=== PATIENT | female | born 1945 | race Caucasian/White ===

== ENCOUNTER → 2023-01-27 07:49 | Outpatient (BNVA) | payer OTHER, SELFPAY | PROVIDERS: PCP Internal Medicine; Visit Provider Internal Medicine Rheumatology | DX: M18.12 Unilateral primary osteoarthritis of first carpometacarpal joint, left hand (principal); G56.02 Carpal tunnel syndrome, left upper limb; M16.0 Bilateral primary osteoarthritis of hip; M17.0 Bilateral primary osteoarthritis of knee; M70.61 Trochanteric bursitis, right hip; M79.7 Fibromyalgia; M05.9 Rheumatoid arthritis with rheumatoid factor, unspecified; M35.00 Sjogren syndrome, unspecified | CPT/HCPCS: 20600; 20610 ==

== ENCOUNTER 2023-08-10 10:13 | Outpatient (REF) | payer OTHER, SELFPAY | END 2023-08-10 10:14 | disposition home or self-care (01) | LOC: HO.HOSX 10:13 | PROVIDERS: PCP Internal Medicine; Visit Provider Neurological Surgery | DX: M43.16 Spondylolisthesis, lumbar region (principal); M48.062 Spinal stenosis, lumbar region with neurogenic claudication | CPT/HCPCS: 72110 ==

== ENCOUNTER 2023-08-10 10:13 | Outpatient (AMB) | payer OTHER, SELFPAY ==
--- NOTE | 2023-08-10 10:42 | HO.SPINEOV ---
Intake Intake Visit Reasons: second opinion Intake Note: Mrs. Fan is here today c/o low back pain. MRI done @ [facility]/brought disc. Client Support Consultant Required: No Allergies acetaminophen [From Percocet] Adverse Reaction (Unknown, Verified 01/21/23 10:05) Palpitations amoxicillin Adverse Reaction (Unknown, Verified 01/21/23 10:05) Hives ampicillin Adverse Reaction (Unknown, Verified 01/21/23 10:05) Hives aspirin [From Percodan] Adverse Reaction (Unknown, Verified 01/21/23 10:05) Palpitations codeine Adverse Reaction (Unknown, Verified 01/21/23 10:05) Palpitations dexamethasone [From Decadron] Adverse Reaction (Unknown, Verified 01/21/23 10:05) Shortness of Breath, Fatigue erythromycin base Adverse Reaction (Unknown, Verified 01/21/23 10:05) Hives levofloxacin [From Levaquin] Adverse Reaction (Unknown, Verified 01/21/23 10:05) Hives naproxen Adverse Reaction (Unknown, Verified 01/21/23 10:05) Palpitations oxycodone [From Percocet] Adverse Reaction (Unknown, Verified 01/21/23 10:05) Palpitations Penicillins Adverse Reaction (Unknown, Verified 01/21/23 10:05) Hives pravastatin Adverse Reaction (Unknown, Verified 01/21/23 10:05) Muscle cramps sulfamethoxazole [From Bactrim] Adverse Reaction (Unknown, Verified 01/21/23 10:05) Hives triamcinolone [From Kenalog] Adverse Reaction (Unknown, Verified 01/21/23 10:05) Flushing trimethoprim [From Bactrim] Adverse Reaction (Unknown, Verified 01/21/23 10:05) Hives Assessment & Plan Assessment & Plan (1) Spondylolisthesis, lumbar region: Code(s): M43.16 - Spondylolisthesis, lumbar region (2) Lumbar stenosis with neurogenic claudication: Code(s): M48.062 - Spinal stenosis, lumbar region with neurogenic claudication Plan Dear colleague Thank you for referring Nakita Fan for 2nd opinion to the office today with a chief complaint of right footdrop. HPI: This 78-year-old female developed acute sciatica on April 29. The pain radiated from her buttock down to the outside of her lower leg. As far she recalls, she developed an immediate footdrop, which has slightly improved since then. The left side is unaffected. The pain has since then subsided after injections. She notices when she stretches her leg she gets tingling on the outside of her lower leg. She just started physical therapy. She saw a surgeon at [facility] recommended an L4-5 lumbar decompression and instrumented fusion and told her that she would be looking at a 1 year recovery. She is coming in for 2nd opinion PMH: Sjogren syndrome, hyper thyroidism, arthritis Medications: Methimazole, Tylenol, Advil Allergies: Penicillin, amoxicillin, ampicillin, codeine, naproxen, Percodan, Percocet, Levaquin, Bactrim, erythromycin, pr fast teen, Decadron, gabapentin Social history: . Nonsmoker Physical Exam: Pleasant female. She ambulates with a walker. Straight leg raise produces tingling in the right L5 dermatome. Motor exam shows a and 0/5 EHL and 3/5 dorsiflexors on the right side. Remainder of the muscle groups are intact. No sensory deficits. No pathological reflexes Radiological Studies: MRI done at [facility] on 05/18/2023 shows moderate L3-4 spinal stenosis and severe L4-5 central spinal stenosis with hyperintensity of the L4-5 facet joints and a grade 1 spondylolisthesis. Dynamic x-rays obtained today show no progression of the spondylolisthesis with flexion and extension. Impression/Plan: This patient is suffering from an L5 lumbar radiculopathy with a partial footdrop. The radicular pain is basically gone. There is no instability with flexion-extension x-rays and the symptoms are unilateral and therefore I think a simple unilateral lumbar laminotomy to decompress the L5 nerve root is a good option to see if the motor function of the L5 nerve root can be restored. I did not offer her lumbar fusion but if I would have offer her disc procedure then it would be minimally invasive approach with a 1 night hospital stay and recovery period of approximately 4-6 weeks. She wants to proceed with the right L5 laminotomy. She scheduled for 10/20/2023 . She will see Dr. Gil for preoperative clearance. Thank you for allowing me to participate in your patients care. Do not hesitate to call me with any questions or concerns total time spent was 50 minutes in counseling ,coordination of plan, personal review of imaging, surgical decision making and subsequent plan Jacinto Abad MD, PhD Sp[facility] Trained Neurosurgeon Director, [facility] Orders: Orders XR lumbar spine 4V min Today M43.16 - Spondylolisthesis, lumbar region, M48.062 - Spinal stenosis, lumbar region with neurogenic claudication Coding Level of Care Code New Pt Level 4 (79795) Diagnoses Spondylolisthesis, lumbar region M43.16 Lumbar stenosis with neurogenic claudication M48.062
== END 2023-08-10 12:56 | disposition home or self-care (01) ==
PROVIDERS: PCP Internal Medicine; Visit Provider Neurological Surgery
DX: M43.16 Spondylolisthesis, lumbar region (principal); M48.062 Spinal stenosis, lumbar region with neurogenic claudication
CPT/HCPCS: 99204

== ENCOUNTER → 2023-10-06 13:26 | Outpatient (BNV) | payer MEDICARE, SELFPAY | PROVIDERS: PCP Internal Medicine; Visit Provider Internal Medicine Cardiovascular Disease | DX: R00.0 Tachycardia, unspecified (principal) | CPT/HCPCS: 93010 ==

== ENCOUNTER 2023-10-20 09:07 | Day surgery (SDC) | payer MEDICARE, SELFPAY ==
--- NOTE | 2023-10-06 | ECG_ITS ---
Test Reason : PREOP Blood Pressure : / mmHG Vent. Rate : 102 BPM Atrial Rate : 102 BPM P-R Int : 148 ms QRS Dur : 084 ms QT Int : 340 ms P-R-T Axes : 074 035 039 degrees QTc Int : 443 ms Sinus tachycardia Possible Left atrial enlargement Borderline ECG No previous ECGs available Referred By: Rosie Haddad Electronically Signed By:MUSTAPHA ANTHONY MD
[2023-10-06 12:04] VITALS: BMI 22.1
[2023-10-06 12:08] VITALS: BP 156/73; PULSE 101; RESP 16; O2SAT 99
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
[2023-10-06 14:17] LABS: Hematocrit 44.8 % (37.0-47.0); Hemoglobin 14.5 g/dl (12.0-16.0); Mean Corpuscular HGB Conc 32.4 g/dl (31.0-35.0); Mean Corpuscular Hemoglobin 30.4 pg (27.0-33.0); Mean Corpuscular Volume 93.9 fL (80.0-98.0); Platelet Count 303 X10*3/uL (160-400); Red Blood Count 4.77 X10*6/uL (4.20-5.50); Red Cell Distribution Width 12.4 % (11.0-16.0); White Blood Count 8.7 X10*3/uL (4.8-10.8)
[2023-10-06 15:10] LABS: Anion Gap 12 (12-20); Blood Urea Nitrogen 14 mg/dL (9-16); Carbon Dioxide 27 mmol/L (22-29); Chloride 105 mmol/L (96-108); Creatinine Clr Calc Pharmacy 67.7; Estimated Glomerular Filt Rate > 60; Glucose Random 92 mg/dL (60-115); Potassium 4.2 mmol/L (3.3-5.1); Sodium 140 mmol/L (135-145)
[2023-10-06 15:22] LABS: TSH reflex Free T4 0.65 uIU/mL (0.32-4.0)
[2023-10-20] VITALS (15 sets, daily range): BP systolic 118–164; BP diastolic 54–85; PULSE 72–102; RESP 12–16; TEMP 36.1–36.4; O2SAT 97–100
--- NOTE | ~2023-10-20 | FL_ITS ---
EXAMINATION: XR FLUOROSCOPY WITH IMAGES CLINICAL INFORMATION: L5 laminectomy decompression, right. COMPARISON: Lumbar spine x-ray August 2023 TECHNIQUE: Fluoroscopy Supervised By: Dr. Jacinto Abad. Fluoroscopy Time: 0.0 minutes. Cumulative Dose: 1.62 mGy. DAP: 0.0281 Gycm2. Images: 1. FINDINGS: Single lateral image demonstrates surgical instrument and marker posterior to the L5 vertebrae FL/FL guidance in OR IMPRESSION: Fluoroscopy guidance for lumbar spine surgery.
--- NOTE | 2023-10-20 10:00 | MHC.SHP ---
Pre-Procedural Eval Section A Date of Service: 10/20/23 The patient is an INPATIENT: No Changes since office visit: Yes Cold of Flu in the past 2 weeks The History & Physical has been completed within 30 days and I have reviewed it.: No Section B Chief Complaint: Spondylolisthesis, lumbar region,spinal stenosis Allergies: Allergies Allergy/AdvReac Type Severity Reaction Status Date / Time gabapentin Allergy Severe Palpitations, Verified 10/06/23 12:29 GI upset amoxicillin AdvReac Severe Hives Verified 10/06/23 12:29 ampicillin AdvReac Severe Hives Verified 10/06/23 12:29 dexamethasone [From Decadron] AdvReac Severe Shortness Verified 10/06/23 12:29 of Breath, Fatigue erythromycin base AdvReac Severe Hives Verified 10/06/23 12:29 levofloxacin [From Levaquin] AdvReac Severe Hives Verified 10/06/23 12:29 Penicillins AdvReac Severe Hives Verified 10/06/23 12:29 pravastatin AdvReac Severe Muscle Verified 10/06/23 12:29 cramps sulfamethoxazole AdvReac Severe Hives Verified 10/06/23 12:29 [From Bactrim] trimethoprim [From Bactrim] AdvReac Severe Hives Verified 10/06/23 12:29 codeine AdvReac Intermediate Palpitation Verified 10/06/23 12:29 s naproxen AdvReac Intermediate Palpitation Verified 10/06/23 12:29 s oxycodone [From Percocet] AdvReac Intermediate Palpitations, Verified 10/06/23 12:29 GI upset triamcinolone [From Kenalog] AdvReac Mild Flushing Verified 10/06/23 12:29 Review of Systems Sugical H&P ROS: Negative: Constitution, Cardiovascular, Respiratory, Neurological, Psychiatric, Hem-Onc, Allergic/Immunologic, Gastrointestinal, Genitourinary, Musculoskeletal, Integumentary, Endocrine and Eyes/Ears/Nose/Throat Exam Surgical H&P Exam: Not Evaluated: HEENT, Not Evaluated: Heart, Not Evaluated: Lungs, Not Evaluated: Extremities, Not Evaluated: Abdomen, Not Evaluated: Skin and Not Evaluated: Neurological Plan Diagnosis/Plan: Unchanged I have reviewed the history and physical and performed a pertinent physical examination on my patient. No changes have occurred unless specified. right L5 foraminotomy Time Spent With Patient Time: Total time managing care of this patient today __5__ minutes.
[2023-10-20] MEDS: methocarbamoL 750 MG TABLET PO (10:35)
[2023-10-20] MEDS: Lactated Ringers 1,000 ML 100 ML IVCONT (10:50)
[2023-10-20] MEDS: vancomycin HCL 1,000 MG in 0.9 % Sodium Chloride 250 ML 270 MG IV (10:50)
--- NOTE | 2023-10-20 13:43 | W.PM.OPN ---
Operative Note Operative Note Date of Service: 10/20/23 Narrative: Preoperative Diagnosis: Spinal stenosis/lateral recess stenosis/neural foraminal stenosis Operation: Right L5 Laminotomy, Partial facetectomy and foraminotomy with use of microscope Consent Informed Consent was obtained for this operation. I have explained the nature, purpose and benefits of the operation. I have discussed the risks and benefit of the operation including possible complications or adverse events with patient/family. Alternative(s) were discussed with the patient with their relative benefits and risks as well as the consequences of not accepting the operation were included in obtaining consent. Surgeon: TRISTEN CHU MD, PHD Procedure Assisted By: FLOWER Aleman Description of Procedure This 78-year-old female developed right radiculopathy and drop foot. An MRI shows compression of the L5 nerve root from its origin and into the foramen. The patient was offered a decompression of the nerve root. The procedure complications were explained. The patient was consented. The patient was brought to the operating room and endotracheally intubated. The patient was turned in prone position on the Stanley frame. Prep and drape was done followed by timeout. Physician export sales assistant provided access. A mid lumbar incision was made followed by release of the paravertebral muscle on the right side to expose the L5 lamina and facet joint. An intraoperative x-ray was obtained to confirm the correct level. The microscope was brought in. I took over the procedure. The high-speed drill was used to do a L5 laminotomy. #2 Kerrison was used to further remove the lamina towards the L5 foramen. The flavum ligament was opened and the origin of the L5 nerve root was not identified. Significant hypertrophied flavum ligament was resected from the lateral recess to decompress the L5 nerve root. The facet joint was partially drilled down after which with a #2 Kerrison a foraminotomy was done. Finally a foraminotomy Kerrison was used to complete the foraminotomy. Severe neuroforaminal stenosis was present and released. A long nerve hook could be easily passed over the nerve root, a sign of relief of the neuroforaminal stenosis and decompression of the nerve root . The microscope was removed. Hemostasis was done. Incision was closed in 2 layers. Steri-Strips were used to approximate incision. An OpSite with Tegaderm was used to cover the incision. All sponge needle counts were correct. Patient was extubated and transported in stable is to recovery room. Anesthesia: General Estimated Blood Loss (ml): 25 mL Duration of Surgery: Under 60 Minutes Postoperative Plan: Discharge to home
--- NOTE | 2023-10-20 13:46 | P.DS_ITS ---
DS: Providers Provider Date of Service: 10/20/23 Primary care physician: Reina Gil MD DS: Summary Time Attestation Discharge coordination time: Less than 30 minutes Quality: Safe Use of Opioids Does Pt have an Active Cancer Diagnosis on the Problem List?: No Quality: Stroke Does the patient have a stroke diagnosis?: No Physical Exam Vital Signs: Vital Signs: Last Vital Signs Temp 97.6 F 10/20/23 10:24 Pulse 102 H 10/20/23 10:24 Resp 16 10/20/23 10:24 BP 139/65 10/20/23 10:24 Pulse Ox 100 10/20/23 10:24 O2 Del Method Room Air 10/20/23 10:24 BMI result Body Mass Index 22.1 Discharge Plan Discharge Patient Disposition: Home, Self-Care Referrals: Reina Gil MD [Primary Care Provider] - 1 Week Discharge Medications: New tramadol 100 mg tablet 100 mg PO Q6-8H PRN (Reason: severe pain) Qty: 30 0RF Continued cholecalciferol (vitamin D3) [Vitamin D3] 25 mcg (1,000 unit) Capsule 25 mcg PO DAILY magnesium 200 mg Tablet 400 mg PO DAILY zinc 50 mg Capsule 50 mg PO DAILY biotin PO DAILY iron hyalur ac-chond sul-colg II-AA 40-80-400 mg Capsule 200 cap PO DAILY Biotene Moisturizing Mouth [place],Non-Aerosol 1 appl MUCOUS MEMBRANE Q2H PRN (Reason: Dry Mouth) Rx Instructions: while awake Systane Complete 0.6 % Drops 1 drp OPHTHALMIC (EYE) BID PRN (Reason: Dry Eyes) Systane Gel ophthalmic (eye) BID PRN (Reason: Dry Eyes) lorazepam 0.5 mg tablet 0.25 mg PO BEDTIME PRN (Reason: insomnia) methimazole 5 mg tablet 2.5 mg PO BEDTIME acetaminophen [Tylenol Arthritis Pain] 650 mg tablet extended release 650 mg PO Q8H PRN (Reason: Pain) (DME) finger splint Misc See Rx Instructions .Route Qty: 1 0RF Rx Instructions: As directed Held omega 5-hyz-aji-fish oil [Fish Oil] 1,200 (144-216) mg Capsule PO Hold Instructions: Resume on 11/20/23. Discharge Orders: Discharge Order (Routine); Ordered 10/20/23 Ordered By: Rafa Pillai Diet: Advance to usual diet Activity on Discharge: As tolerated Activity Restrictions/Additional Instructions: After your spinal surgery we ask you to observe the following restrictions/guidelines: Activity: It is normal to feel some discomfort as you increase your activity, but that will improve with time. We ask you avoid heavy lifting or acitivities that cause pain. As a general rule, 8lbs is a safe limit for lifting right after surgery. Walk as much as you feel comfortable but not to exhaustion. You will feel extra tired the first few days after surgery. Stay well hydrated. It is OK to walk up and down stairs You may return to driving when you are off narcotics (such as vicodin, oxycodone, dilaudid, etc), and you are back to normal functional capacity. If you have any concerns please check with office before driving. Return to work is specific to each patient and each surgery, so please speak with your doctor/PA at first follow up. Please bring paperwork such as FMLA at that time if you need it filled out. Medications: We will give you a short supply of narcotics after surgery (usually one weeks worth). If you need more please call the office but do not use more than prescribed. You will need to give our office 48 hours notice if you need narcotics refilled and we do not fill narcotics on weekends or evenings. If you are on a narcotic, it is a good idea to take a stool softener such as colace or senna to avoid constipation If you take blood thinner such as aspirin, Plavix, Coumadin, Effient, Eliquis etc for conditions such as Afib, DVT, Pulmonary embolus, coronary disease, stents etc please speak with your surgeon about specific details as to when you can resume these medications. You can resume NSAIDs on post op day 1 (eg: Motrin, Naproxen, etc). Follow up: Please call the office, , after surgery to arrange a 3 week follow up for wound check. Wound Care: You may remove your dressing on the first day after surgery. You may leave open to air. Please do not remove the steri strips underneath. they will fall off on their own in one week. IT IS NORMAL FOR THE WOUND TO OOZE OR BE BLOODY FOR A FEW DAYS AFTER SURGERY. IF THIS HAPPENS JUST PLACE NEW DRESSING OVER IT TO AVOID STAINING CLOTHES. You may shower on post op day # 1 We ask that you do not let the water soak the wound. If it does get wet, just towel dry lightly. Please do not scrub your incision or place any type of chemical/ointment on the wound. No tub baths, pools or jacuzzis for one month. If you have any leaking or redness from your wound, or fevers, please call the office.
[2023-10-20] MEDS: ondansetron HCL 4 MG/2 ML VIAL IVPUSH (14:19)
== END 2023-10-20 17:35 | disposition home or self-care (01) ==
PROVIDERS: Nurse Practitioner; PCP Internal Medicine; Visit Provider Neurological Surgery
PROC: (CPT 63047; principal; 2023-10-20 13:30)
DX: M48.062 Spinal stenosis, lumbar region with neurogenic claudication (principal); M43.16 Spondylolisthesis, lumbar region; M21.371 Foot drop, right foot; M54.50 Low back pain, unspecified; Z88.0 Allergy status to penicillin; Z88.2 Allergy status to sulfonamides; Z88.1 Allergy status to other antibiotic agents; Z88.5 Allergy status to narcotic agent; Z88.8 Allergy status to other drugs, medicaments and biological substances; M35.00 Sjogren syndrome, unspecified; E05.90 Thyrotoxicosis, unspecified without thyrotoxic crisis or storm; M19.91 Primary osteoarthritis, unspecified site; Z99.89 Dependence on other enabling machines and devices
CPT/HCPCS: 63047; 36415; 80048; 84443; 85027; 93005; J0131; J1885; J2371; J2405; J2704; J3010; J3370

== ENCOUNTER → 2023-10-20 09:07 | Outpatient (BNV) | payer MEDICARE, SELFPAY | PROVIDERS: PCP Internal Medicine; Visit Provider Neurological Surgery | DX: M48.062 Spinal stenosis, lumbar region with neurogenic claudication (principal); M43.16 Spondylolisthesis, lumbar region | CPT/HCPCS: 63047; 99499 ==

== ENCOUNTER 2023-11-10 11:26 | Outpatient (AMB) | payer OTHER, SELFPAY ==
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
== END 2023-11-10 11:54 | disposition home or self-care (01) ==
PROVIDERS: PCP Internal Medicine; Visit Provider Physician Assistant
DX: M48.062 Spinal stenosis, lumbar region with neurogenic claudication (principal)
CPT/HCPCS: 99024

== ENCOUNTER → 2023-11-10 11:26 | Outpatient (BNVA) | payer OTHER, SELFPAY | PROVIDERS: PCP Internal Medicine; Visit Provider Physician Assistant ==

== ENCOUNTER 2023-12-22 16:04 | Outpatient (AMB) | payer OTHER, SELFPAY ==
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
== END 2023-12-22 16:05 | disposition home or self-care (01) ==
LOC: HO.HNS 16:04
PROVIDERS: PCP Internal Medicine; Visit Provider Physician Assistant
DX: M43.16 Spondylolisthesis, lumbar region (principal)
CPT/HCPCS: 99024

== ENCOUNTER → 2023-12-22 16:04 | Outpatient (BNVA) | payer OTHER, SELFPAY | PROVIDERS: PCP Internal Medicine; Visit Provider Physician Assistant | DX: M43.16 Spondylolisthesis, lumbar region (principal) ==

== ENCOUNTER 2024-01-04 13:31 | Outpatient (AMB) | payer OTHER, SELFPAY ==
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
[2024-01-04 13:49] VITALS: BP 128/64; PULSE 109; TEMP 36.5; O2SAT 98; BMI 22.8
== END 2024-01-04 14:42 | disposition home or self-care (01) ==
PROVIDERS: PCP Internal Medicine; Visit Provider Student in an Organized Health Care Education/Training Program
DX: M35.01 Sjogren syndrome with keratoconjunctivitis (principal); M70.61 Trochanteric bursitis, right hip
CPT/HCPCS: 20610; 99213

== ENCOUNTER → 2024-01-04 13:31 | Outpatient (BNVA) | payer OTHER, SELFPAY | PROVIDERS: PCP Internal Medicine; Visit Provider Student in an Organized Health Care Education/Training Program | DX: M70.61 Trochanteric bursitis, right hip (principal); M35.01 Sjogren syndrome with keratoconjunctivitis | CPT/HCPCS: 20610; J3301 ==

== ENCOUNTER 2024-07-16 13:30 | Outpatient (AMB) | payer OTHER, SELFPAY ==
[2024-07-16 13:33] VITALS: BP 124/78; PULSE 89; O2SAT 98; BMI 23.5
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
== END 2024-07-16 15:22 | disposition home or self-care (01) ==
PROVIDERS: PCP Internal Medicine; Visit Provider Student in an Organized Health Care Education/Training Program
DX: M35.01 Sjogren syndrome with keratoconjunctivitis (principal); M70.61 Trochanteric bursitis, right hip; M17.0 Bilateral primary osteoarthritis of knee; E04.9 Nontoxic goiter, unspecified
CPT/HCPCS: 20610; 99214

== ENCOUNTER → 2024-07-16 13:30 | Outpatient (BNVA) | payer OTHER, SELFPAY | PROVIDERS: PCP Internal Medicine; Visit Provider Student in an Organized Health Care Education/Training Program | DX: M70.61 Trochanteric bursitis, right hip (principal); M35.01 Sjogren syndrome with keratoconjunctivitis; M17.0 Bilateral primary osteoarthritis of knee; E04.9 Nontoxic goiter, unspecified | CPT/HCPCS: 20610; J2003; J3301 ==

== ENCOUNTER → 2024-09-05 12:46 | Outpatient (REF) | payer OTHER, SELFPAY ==
--- NOTE | 2024-09-05 12:49 | CA_ITS ---
Transthoracic Echocardiogram Patient (Last, First, Middle): Nakita Fan L Gender: Female Date of : 1945 Age: 79 Procedure Date: 09/05/2024 Procedure Type: Transthoracic Echocardiogram Location: OP Height: 162.56 cm Weight: 62.14 kg BSA: 1.67 m2 Heart Rate: 91 bpm BP: 120 / 72 mmHg Lead Javascript Engineer: SB Referring MD: Janet Amanda MD Symptoms: M34.9 - Systemic sclerosis, unspecified Study Quality: Adequate ECG Rhythm: Sinus Conclusions: - The left ventricular systolic function is normal. The calculated ejection fraction is 57% by biplane method. - There is mild calcification of the aortic valve. - There is mild mitral annular calcification. - No obvious valvular pathology seen on this study. Findings Left Ventricle Normal left ventricular cavity size. The left ventricular systolic function is normal. The calculated ejection fraction is 57% by biplane method. There is no evidence of regional wall motion abnormalities. Evidence suggests grade I (mild) diastolic dysfunction. There is mild septal asymmetric hypertrophy. Right Ventricle Normal right ventricular cavity size and systolic function. Atria Both atria are normal in size. Aortic Valve There is mild calcification of the aortic valve. There is no aortic valve stenosis. There is no aortic valve regurgitation. Mitral Valve There is mild anterior mitral leaflet thickening. There is mild mitral annular calcification. There is no mitral valve regurgitation. There is no mitral valve stenosis. Pulmonic Valve The pulmonic valve is likely normal. Tricuspid Valve Normal tricuspid valve structure. There is trace tricuspid valve regurgitation. There is no evidence of pulmonary hypertension. Great Vessels The asc aorta is normal in size. Venous The inferior vena cava is normal in size and collapses greater than 50% with inspiration. Pericardium/Pleural There is a trivial pericardial effusion. Prior Study Comparison No prior study available for comparison. Recommendations, Care & Conclusions No obvious valvular pathology seen on this study. Measurements 2D Linear Measurements IVSd: 1.03 0.6-0.9/0.6-1.0 cm LVIDd: 3.85 3.9-5.3/4.2-5.9 cm LVIDd Index: 2.31 2.4-3.2/2.2-3.1 cm/m2 LVIDs: 2.46 2.0-3.6 cm LVPWd: 0.95 0.7-1.1 cm LA Diam: 3.20 2.7-3.8/3.0-4.0 cm LAIDs Index: 1.92 1.5-2.3 cm/m2 LV Mass: 147.16 67-162/88-224 g LV Mass Index: 88.12 43-95/49-115 g/m2 LVOT Diam: 2.10 3.0+(-)1.3 cm 2D Systolic Function EF 4C: 57.30 >55% EF 2C: 52.50 >55% EF BiP: 56.60 >55% Mitral Valve MV VTI: 0.17 MV Pk Stanislav: 0.97 MV Mn Stanislav: 0.53 MV Pk Grad: 4.00 MV Mn Grad: 1.00 MV Pk E: 0.64 MV PK A: 0.79 MV Decel Time: 189.00 E/A: 0.80 E'Lateral: 4.24 E'Medial: 3.70 E/E' Med: 17.20 E/E' Lat: 15.00 PHT: 55.00 MVA PHT: 4.00 MVA Continuity: 3.98 Decel Osborne: 3.38 Aortic Valve AoV Pk Stanislav: 1.21 AoV Mn Stanislav: 0.70 AoV VTI: 0.21 AoV Pk Grad: 6.00 Aov Mn Grad: 2.00 RK Cont.VTI: 3.21 LVOT LVOT Pk Stanislav: 0.98 LVOT Mn Stanislav: 0.64 LVOT VTI: 0.19 LVOT Pk Grad: 4.00 LVOT Mn Grad: 2.00 LVOT Diam: 2.10 LVOT Area: 3.46 Diastolic Function MV Pk E: 0.64 MV Pk A: 0.79 E/A: 0.80 E'Medial: 3.70 E/E' Med: 17.20 E' Laterial: 4.24 E/E' Lat: 15.00 Right Ventricle TAPSE (mm): 18.10 TVS' Stanislav: 9.90 Tricuspid Valve RA Press: 3.00 Great Vessels Aorta Sinus of Valsalva: 2.80 2.0-3.5 cm Ao Asc: 3.00 2.1-3.4 cm Pulmonary Valve PV Pk Stanislav: 0.82 Peak PV Grad: 3.00 Updated in Other Vendor System with Status of Final Keanu Spivey MD electronically signed on 09/08/2024 11:28:05 AM with status of Final
== END ==
LOC: HO.CARD 12:46
PROVIDERS: PCP Internal Medicine; Visit Provider Student in an Organized Health Care Education/Training Program
DX: M34.9 Systemic sclerosis, unspecified (principal)
CPT/HCPCS: 93306

== ENCOUNTER → 2024-09-05 12:49 | Outpatient (BNV) | payer OTHER, SELFPAY | PROVIDERS: PCP Internal Medicine; Visit Provider Internal Medicine | DX: I42.2 Other hypertrophic cardiomyopathy (principal); I35.8 Other nonrheumatic aortic valve disorders; I34.81 Nonrheumatic mitral (valve) annulus calcification; M34.1 CR(E)ST syndrome; M35.09 Sjogren syndrome with other organ involvement | CPT/HCPCS: 93306 ==

== ENCOUNTER 2024-10-16 11:50 | Outpatient (REF) | payer OTHER, SELFPAY ==
--- OUTSIDE RECORDS SUMMARY | 2024-10-17 21:02 | XMS_ITS | Patient Health Record ---
Author [facility] Address [address] [place] [address] Care Team Providers Care Press Operator Assistant Name Role Phone Reina Gil Primary Care Provider Kori Franco [phone] Reason For Referral No Information Encounters Encounter Location Date Provider Diagnosis [facility] [place] [address] 08/13/2024 Kori Lozano Plan Of Treatment No Information Insurance Providers Payer Name Payer Address Payer Phone Subscriber Number Group Number Insured Name Patient Relationship to Insured Coverage Start Date Coverage End Date [employer] Medicare Advantage [address] [place] [id number] Nakita Fan Self - patient is the insured
--- OUTSIDE RECORDS SUMMARY | 2024-10-17 21:02 | XMS_ITS ---
Author Organization [facility] Address [address] [place] [address] Care Team Providers Care Comb Setter Name Role Phone JefferyReina garces Primary Care Provider Unavailjayde jackman Black, Kori Unavailable [phone] REASON FOR VISIT cx QUARTZ MOUNTER appt 08/30/24 Encounters Encounter Location Date Provider Diagnosis [address] [address] 08/13/2024 Kori Black Plan Of Treatment No Information Progress Notes * Nakita CLAYTONDOB:[birth year] (79 yo F)Acc No.[id number]:08/13/2024 Patient:?Nakita Clayton :1945???Age:79 Y???Sex:Female Address:[address] [place] [address], [address] * true * Date:? Generated for Darwin mesa/Maude/eTransmitting on:?10/17/2024 09:01 PM EST
--- OUTSIDE RECORDS SUMMARY | 2024-10-17 21:02 | XMS_ITS ---
Author Organization [facility] Address [address] [place] [address] Care Team Providers Care Mechanical Applications Engineer Name Role Phone Reina Gil Primary Care Provider Kori Franco [phone] Encounters Encounter Location Date Provider Diagnosis [address] [address] 08/29/2024 Kori Lozano Plan Of Treatment No Information Progress Notes * Nakita CLAYTONDOB:[birth year] (79 yo F)Acc No.[id number]:08/29/2024 Progress Notes Patient:?FORREST Nakita Provider:?Kori Lozano DPM :1945???Age:79 Y???Sex:Female D ate:08/29/2024 Address:[address] [place], [place] [phone] Pcp:Reina Gil Subjective: * Chief Complaints: * ??? * Medical History:? Objective: * Vitals:? Assessment: Plan: * Treatment: * Images: * The named appointment provid er may or may not be the originator of this progress note, and it is not deemed complete until electronically signed by the appointment provider. Sign off status: Pending * Provider:?Kori Lozano DPM Date:?2023 Generated for Darwin mesa/Maude/Kishoritting on:?10/17/2024 09:01 PM EST
== END 2024-10-16 11:51 | disposition home or self-care (01) ==
LOC: HO.HOSX 11:50
PROVIDERS: Visit Provider Physician Assistant
DX: Z13.89 Encounter for screening for other disorder (principal)

== ENCOUNTER 2024-10-19 14:50 | Outpatient (AMB) | payer OTHER, SELFPAY ==
--- OUTSIDE RECORDS SUMMARY | 2024-10-19 14:52 | XMS_ITS | Patient Health Record ---
Author [facility] Address [address] [place] [address] Care Team Providers Care Track Mechanic Name Role Phone Reina Gil Primary Care Provider Kori Franco [phone] Reason For Referral No Information Encounters Encounter Location Date Provider Diagnosis [facility] [place] [address] 08/13/2024 Kori Lozano Plan Of Treatment No Information Insurance Providers Payer Name Payer Address Payer Phone Subscriber Number Group Number Insured Name Patient Relationship to Insured Coverage Start Date Coverage End Date [employer] [place] Medicare Advantage [address] [place] [address] [phone] [id number] Nakita Fan Self - patient is the insured
--- OUTSIDE RECORDS SUMMARY | 2024-10-19 14:52 | XMS_ITS ---
Author Organization [facility] Address [address] [place] [address] Care Team Providers Care Crew Leader/Control Room Operator Name Role Phone JefferyReina garces Primary Care Provider Unavailjayde jackman Black, Kori Unavailable [phone] REASON FOR VISIT cx JUNIOR PROJECT MANAGER appt 08/30/24 Encounters Encounter Location Date Provider Diagnosis [address] [address] 08/13/2024 Kori Black Plan Of Treatment No Information Progress Notes * Nakita CLAYTONDOB:[birth year] (79 yo F)Acc No.[id number]:08/13/2024 Patient:?Nakita Clayton :1945???Age:79 Y???Sex:Female Address:[address] [place] [address], [address] * true * Date:? Generated for Darwin mesa/Maude/eTransmitting on:?10/19/2024 02:52 PM EST
--- OUTSIDE RECORDS SUMMARY | 2024-10-19 14:52 | XMS_ITS ---
Author Organization [facility] Address [address] [place] [address] Care Team Providers Care Chimney Builder Brick Name Role Phone Reina Gil Primary Care Provider Kori Franco [phone] Encounters Encounter Location Date Provider Diagnosis [address] [address] 08/29/2024 Kori Lozano Plan Of Treatment No Information Progress Notes * Nakita CLAYTONDOB:[birth year] (79 yo F)Acc No.[id number]:08/29/2024 Progress Notes Patient:?FORREST Nakita Provider:?Kori Lozano DPM :1945???Age:79 Y???Sex:Female D ate:08/29/2024 Address:[address] [place], [place] [phone] Pcp:Reina Gil Subjective: * Chief Complaints: * ??? * Medical History:? Objective: * Vitals:? Assessment: Plan: * Treatment: * Images: * The named appointment provid er may or may not be the originator of this progress note, and it is not deemed complete until electronically signed by the appointment provider. Sign off status: Pending * Provider:Raghu Lozano DPM Date:?2023 Generated for Darwin mesa/Maude/Kishoritting on:?10/19/2024 02:52 PM EST
--- NOTE | 2024-10-19 15:28 | HO.SPINEOV ---
Intake Visit Reasons: Follow up Intake Note: Ms. Fna is here today for a F/u. Weatherization Technician Required: No Allergies gabapentin Allergy (Severe, Verified 10/19/24 15:29) Palpitations, GI upset amoxicillin Adverse Reaction (Severe, Verified 10/19/24 15:29) Hives ampicillin Adverse Reaction (Severe, Verified 10/19/24 15:29) Hives dexamethasone [From Decadron] Adverse Reaction (Severe, Verified 10/19/24 15:29) Shortness of Breath, Fatigue erythromycin base Adverse Reaction (Severe, Verified 10/19/24 15:29) Hives levofloxacin [From Levaquin] Adverse Reaction (Severe, Verified 10/19/24 15:29) Hives Penicillins Adverse Reaction (Severe, Verified 10/19/24 15:29) Hives pravastatin Adverse Reaction (Severe, Verified 10/19/24 15:29) Muscle cramps sulfamethoxazole [From Bactrim] Adverse Reaction (Severe, Verified 10/19/24 15:29) Hives trimethoprim [From Bactrim] Adverse Reaction (Severe, Verified 10/19/24 15:29) Hives codeine Adverse Reaction (Intermediate, Verified 10/19/24 15:29) Palpitations naproxen Adverse Reaction (Intermediate, Verified 10/19/24 15:29) Palpitations oxycodone [From Percocet] Adverse Reaction (Intermediate, Verified 10/19/24 15:29) Palpitations, GI upset triamcinolone [From Kenalog] Adverse Reaction (Mild, Verified 10/19/24 15:29) [place] Assessment & Plan Assessment & Plan (1) Spondylolisthesis, lumbar region: Code(s): M43.16 - Spondylolisthesis, lumbar region Category: Medical Plan Mrs Fan came back to f/u on her mri done at [facility]. She had right L5 decompression/foraminotomy previously by Dr Abad about a year ago. Her right leg pain went away, and her footdrop improved a little bit. Unfortunately, shes been dealing wiht a new post operative pain going down back of both legs left greater than right, that started a few months ago. It primarily is only there when she is transitioning from sitting to standing or if she has to bend forward to get something. She will describe it as a jolt like sensation which radiates down the back of both legs, left greater than right. It goes all the way down to her calves. Generally when she is walking she feels okay but it is these transition moments where she will have the shooting pain. There is a component of back pain but primarily the legs are what are bothering her the most. She has also noticed that her right footdrop as returned to what it was before surgery. On my exam today it is about a 3/5. The rest of her exam is unremarkable. She is slow to stand up. Her MRI done at [facility] shows that she continues to have significant disc bulge at L3-4 with moderate to severe stenosis and has ongoing stenosis at L4-5 in the central canal. There is also a spondylolisthesis at L4-5. Dr. Abad discussed the fact with her at that even before surgery, lumbar fusion was in consideration because of the spondylolisthesis at L4-5. She chose the right L5 laminotomy and foraminotomy because it was less invasive in the recovery was quicker. Unfortunately we think that now she is developing in instability around the facet joint at L4-5. This is reinforced with her standing x-rays showing a significant angulation at the L4-5 disc space causing a scoliotic deformity. He has offered her the option of an L3-4, L4-5 oblique lumbar interbody fusion to treat the symptoms. Right now, he wants her to wait a little bit longer and do some physical therapy just to see if this somehow may go away on its own. If it does not, we will discuss the option with surgery with her again. Total amount of time spent in this visit was 20 minutes in discussion of symptoms, lumbar MRI imaging results and subsequent plan of care Griffin Abad MD,PhD [facility] Orders: Orders PT Evaluation and Treatment Today M43.16 - Spondylolisthesis, lumbar region Coding Level of Care Code Est Pt Level 3 (09498) Diagnoses Spondylolisthesis, lumbar region M43.16
== END 2024-10-19 16:30 | disposition home or self-care (01) ==
PROVIDERS: PCP Internal Medicine; Visit Provider Physician Assistant
DX: M43.16 Spondylolisthesis, lumbar region (principal)
CPT/HCPCS: 99213

== ENCOUNTER → 2024-10-19 14:50 | Outpatient (BNVA) | payer OTHER, SELFPAY | PROVIDERS: PCP Internal Medicine; Visit Provider Physician Assistant ==

== ENCOUNTER 2024-10-19 14:53 | Outpatient (REF) | payer OTHER, SELFPAY ==
--- NOTE | ~2024-10-19 | XR_ITS ---
EXAMINATION: XR LUMBAR SPINE CLINICAL INFORMATION: Spondylolisthesis, lumbar region M43.16. COMPARISON: XR Lumbar spine 08/10/2023 TECHNIQUE: 4 views of lumbar spine were obtained. FINDINGS: Diffuse osteopenia. Multilevel degenerative changes of the lumbar spine most pronounced in the lower lumbar spine. 9 mm of anterolisthesis of L5 on S1. This is unchanged in flexion or extension. XR/XR lumbar spine 4V min IMPRESSION: Multilevel degenerative changes of the lumbar spine most pronounced in the lower lumbar spine. Electronically signed by: Richard Gonzalez MD 10/30/2024 01:28 PM AYE
== END 2024-10-19 14:54 | disposition home or self-care (01) ==
LOC: HO.HOSX 14:53
PROVIDERS: Visit Provider Physician Assistant
DX: M43.16 Spondylolisthesis, lumbar region (principal)
CPT/HCPCS: 72110

== ENCOUNTER 2025-06-13 12:14 | Outpatient (AMB) | payer OTHER, SELFPAY ==
--- OUTSIDE RECORDS SUMMARY | 2024-08-29 06:30 | XMS_ITS ---
Author Organization [facility] Address [address] [place] [address] Care Team Providers Care Sales Training Representative Name Role Phone Reina Gil Primary Care Provider Kori Franco [phone] Encounters Encounter Location Date Provider Diagnosis [address] [address] 08/29/2024 Kori Lozano Plan Of Treatment No Information Progress Notes * Corby CLAYTONyrnDOB:[birth year] (80 yo F)Acc No.[id number]:08/29/2024 Progress Notes Patient: Nakita FERMIN Provider: Gerson Lozano DPM :1945 A ge:79 Y S ex:Female Date:08/29/2024 Address:[address] [place], [place] [id number] Pcp:Reina Gil Subjective: * Chief Complaints: * * Medical History: Objective: * Vitals: Assessment: Plan: * Treatment: * Images: * The named appointment provid er may or may not be the originator of this progress note, and it is not deemed complete until electronically signed by the appointment provider. Sign off status: Pending * Provider: Gerson Lozano DPM Date: 1 Generated for Darwin mesa/Maude/eTveronicaitting on: 0 06/13/2025 12:34 PM EDT
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
[2025-06-13 12:27] VITALS: BP 120/70; PULSE 92; O2SAT 99; BMI 22.2
--- OUTSIDE RECORDS SUMMARY | 2025-06-13 12:34 | XMS_ITS | Clinical Summary ---
Author Organization [facility] Address [address] [place] [address] Phone Care Team Providers Care Youth Worker Name Role Phone Reina Gil MD Primary Care Provider Active Problems No known active problems Surgical History Surgery Date Site/Laterality Comments SECTION PROCEDURE: [place] DELIVERY ONLY; COMMENT: x 2 Family History Medical History Relation Name Comments Breast cancer Aunt Relation Name Status Comments Aunt Social History Tobacco Use Types Packs/Day Years Used Date Smoking Tobacco: Former Smokeless Tobacco: Never Alcohol Use Standard Drinks/Week Comments Yes 0 (1 standard drink = 0.6 oz pur e alcohol) Comments Unknown Sex and Gender Information Value Date Recorded Sex Assigned at Not on file Legal Sex Female 7:50 AM EST Gender Identity Not on file Sexual Orientation Not on file Obstetrics History Last Filed Vital Signs Vital Sign Reading Time Taken Comments Blood Pressure - - Pulse - - Temperature - - Respiratory Rate - - Oxygen Saturation - - Inhaled Oxygen Concentration - - Weight 59.9 kg (132 lb) 10/09/2024 12:21 PM EST Height - - Body Mass Index - - Plan of Treatment Health Maintenance Due Date Last Done Comments Hepatitis A Vaccines (1 of 2 - Risk 2-dose series) 1966 Pneumococcal Vaccine: 50+ Years (1 of 1 - PCV) 1997 Zoster Vaccines (1 of 2) 1997 Hepatitis B Vaccines (1 of 3 - Risk 3-dose series) 2007 Falls Risk Assessment 10/10/2022 Hepatitis C Screening 10/10/2022 Medicare Annual Wellness Visit 10/10/2022 Social Influencers of Health Screening 10/10/2022 DTaP,Tdap,and Td Vaccines (2 - Td or Tdap) 05/23/2024 05/23/2014 Depression Screening 11/07/2024 COVID-19 Vaccine ( season) 2025 08/17/2024, 08/23/2023, 03/01/2023, Additional history exists Influenza Vaccine (#1) 2025 , 08/02/2023, 08/20/2022, Additional history exists Osteoporosis Screening (Bone Density Screening) 03/10/2033 03/10/2023, 09/02/2020 RSV Immunization Adult Patients Completed 08/23/2023 HIB Vaccines Aged Out No longer eligi ble based on patient's age to complete this topic HPV Vaccines Aged Out No longer eligi ble based on patient's age to complete this topic IPV Vaccines Aged Out No longer eligi ble based on patient's age to complete this topic MMR Vaccines Aged Out No longer eligi ble based on patient's age to complete this topic Meningococcal ACWY Vaccine Aged Out N o longer eligible based on patient's age to complete this topic Meningococcal B Vaccine Aged Out No l onger eligible based on patient's age to complete this topic RSV Immunization Patients Under 20 months Aged Out No longer eligible based on patient's age to complete this topic Varicella Vaccines Aged Out No longer eligible based on patient's age to complete this topic Procedures Procedure Name Priority Date/Time Associated Diagnosis Comments [facility] DEXA AXIAL SKELETON Routine 03/10/2023 4:56 PM EDT Age-related osteoporosis without current pathological fracture from Last 3 Months or Most Recently Relevant to Health Maintenance Results * [facility] DEXA AXIAL SKELETON (03/10/2023 4:56 PM EDT) Anatomical Region Laterality Modality Mammography 03/10/2023 11:2 1 AM EDT Narrative 03/10/2023 4:56 PM EDT [facility] Diagnostic Imaging Department [address] [place] [address] Patient: JAE CLAYTON /Age/Sex: 1945 - 78 - F Unit#: [id number] Location/Status: SPDIMAM/REG CLI Mnemonic/Ordering Site: MAMDEXAAX/SPMAM Ordering Physician: GRACIELA NUNEZ MD [facility] Dexa Axial Skeleton - 03/10/23 - 1145 History: Low estrogen state due to menopause. Parent hip fracture. Adult fracture (forearm). Comparison: 09/01/20 Findings: Bone densitometry is performed utilizing dual energy x-ray absorptiometry (DXA) in the [employer] unit. The lumbar spine and proximal femora are evaluated in the AP projection. The FRAX questionaire was completed. The results indicate osteoporosis, with a left femoral neck T-score of -2.9. The Z score is -0.8, indicating bone mineral density within the range of normal for age. There has been no statistically significant change. The detailed DEXA report will be mailed to the referring physician's office. [employer] FRAX: 10-year Probability of Fracture: Major Osteoporotic 39.8 percent Hip 26.4 percent. IMPRESSION: Osteoporosis. [id number] Dictating Physician: SHIRA MADRIGAL MD Electronically Signed by: SHIRA MADRIGLA MD Dic Date/Time: 03/10/231654 Sign date/Time: 03/10/231655 Procedure Note Shira Madrigal MD - 12/09/2023 [facility] Diagnostic Imaging Department [address] [place], [place] [id number] Patient: JAE CLAYTON /Age/Sex: 1945 78 - F Unit#: [id number] Location/Status: SPDIMAM/REG CLI Mnemonic/Ordering Site: MAMDEXAAX/SPMAM Ordering Physician: GRACIELA NUNEZ MD [facility] Dexa Axial Skeleton - 03/10/23 - 1145 History: Low estrogen state due to menopause. Parent hip fracture. Adult fracture (forearm). Comparison: 09/01/20 Findings: Bone densitometry is performed utilizing dual energy x-ray absorptiometry(DXA) in the [employer] unit. The lumbar spine and proximal femora areevaluated in the AP projection. The FRAX questionaire was completed. The results indicate osteoporosis, with a left femoral neck T-score of-2.9. The Z score is -0.8, indicating bone mineral density within the range ofnormal for age. There has been no statistically significant change. The detailedDEXA report will be mailed to the referring physician's office. [employer] FRAX: 10-year Probability of Fracture: Major Osteoporotic 39.8 percent Hip 26.4 percent. IMPRESSION: Osteoporosis. [id number] Dictating Physician: SHIRA MADRIGAL MD Electronically Signed by: SHIRA MADRIGAL MD Dic Date/Time: 03/10/231654 Sign date/Time: 03/10/231655 us Graciela Pineda MD IMG BI PROCEDURES Final Resu lt from Last 3 Months or Most Recently Relevant to Health Maintenance Insurance [employer] Care Teams Youth Worker Relationship Specialty Start Date End Date Reina Gil MD [address] [place] [address] [phone] PCP - General Internal Medicine 10/23/24
== END 2025-06-13 13:32 | disposition home or self-care (01) ==
LOC: HO.RHES 12:15
PROVIDERS: PCP Internal Medicine; Visit Provider Internal Medicine Rheumatology
DX: M35.05 Sjogren syndrome with inflammatory arthritis (principal); M70.61 Trochanteric bursitis, right hip; M17.0 Bilateral primary osteoarthritis of knee; I73.00 Raynaud's syndrome without gangrene
CPT/HCPCS: 20610; 99215

== ENCOUNTER → 2025-06-13 12:14 | Outpatient (BNVA) | payer OTHER, SELFPAY | PROVIDERS: PCP Internal Medicine; Visit Provider Internal Medicine Rheumatology | DX: M70.61 Trochanteric bursitis, right hip (principal); M17.0 Bilateral primary osteoarthritis of knee; M35.05 Sjogren syndrome with inflammatory arthritis; I73.00 Raynaud's syndrome without gangrene | CPT/HCPCS: 20610; J2003; J3300 ==

== ENCOUNTER 2025-06-25 15:17 | Outpatient (REF) | payer MEDICARE, SELFPAY ==
--- OUTSIDE RECORDS SUMMARY | 2024-08-29 06:30 | XMS_ITS ---
Author Organization [facility] Address [address] [place] [address] Care Team Providers Care Rumper Name Role Phone Reina Gil Primary Care Provider Kori Franco [phone] Encounters Encounter Location Date Provider Diagnosis [address] [address] 08/29/2024 Kori Lozano Plan Of Treatment No Information Progress Notes * Nakita CLAYTONDOB:[birth year] (80 yo F)Acc No.[id number]:08/29/2024 Progress Notes Patient: Nakita FERMIN Provider: Gerson Lozano DPM :1945 A ge:79 Y S ex:Female Date:08/29/2024 Address:[address] [place], [place] [id number] Pcp:Reina Gil Subjective: * Chief Complaints: * [...] Date: 1 Generated for Darwin mesa/Maude/eTveronicaitting on: 06/25/2025 04:35 PM EDT
--- NOTE | ~2025-06-25 | XR_ITS ---
EXAMINATION: XR KNEE BILATERAL CLINICAL INFORMATION: chronic knee pain COMPARISON: None available. TECHNIQUE: AP bilateral standing view of the knees was obtained. Lateral and sunrise view bilateral knees. FINDINGS: There is joint space narrowing involving mostly the medial compartment. There is small marginal osteophyte formation in the medial femoral condyles and medial tibial plateau with sclerosis along the articular surface of the tibial plateau. No acute cortical disruption or malalignment. No suprapatellar bursa joint effusion. Exostosis at the quadriceps tendon insertion, bilaterally. Vascular calcifications. No lytic or blastic lesions. XR/XR Knee Romario 3V IMPRESSION: Tricompartmental osteoarthrosis/osteoarthritis involving mostly the medial compartment. Enthesopathy, quadriceps tendon Atherosclerosis disease, peripheral. Electronically signed by: Eric Meza MD 06/25/2025 03:49 PM EDT
--- NOTE | ~2025-06-25 | XR_ITS ---
EXAMINATION: XR HAND 3 VIEWS BILATERAL HISTORY: M17.9 - Osteoarthritis, unspecified COMPARISON: There are no prior studies available for comparison. FINDINGS: Six views of the bilateral hands are submitted. Osseous mineralization is normal. There is no fracture or dislocation. There is moderate to severe osteoarthritis of the DIP and PIP joints, as well as the 1st carpometacarpal joints and the interphalangeal joints of the thumbs. The soft tissues are unremarkable. XR/XR Hand Bilat min 3v IMPRESSION: Osteoarthritis of the bilateral hands as described. Electronically signed by: Pete Zhao MD 06/25/2025 03:47 PM EDT
--- NOTE | ~2025-06-25 | XR_ITS ---
EXAMINATION: XR FOOT 3 OR MORE VIEWS BILATERAL HISTORY: M17.9 - Osteoarthritis of knee, unspecified COMPARISON: There are no prior studies available for comparison. FINDINGS: Six views of the bilateral feet are submitted. Osseous mineralization is normal. There is no fracture or dislocation. There is moderate osteoarthritis of the tarsometatarsal and intertarsal joints of both feet. There is mild to moderate degenerative change of the 1st MTP joint of the right foot. There is mild hallux valgus deformity of the left 2nd and 3rd toes. There are calcaneal spurs bilaterally at the plantar aspects and at the insertion of the Achilles tendons. The soft tissues are unremarkable. XR/XR Foot Romario 3V IMPRESSION: Osteoarthritis of the bilateral feet as described. Electronically signed by: Pete Zhao MD 06/25/2025 03:49 PM EDT
--- OUTSIDE RECORDS SUMMARY | 2025-06-25 16:36 | XMS_ITS | Clinical Summary ---
Author Organization [facility] Address [address] [place] [address] Phone Care Team Providers Care Lay Ups Assembler Name Role Phone Reina Gil MD Primary Care Provider Active Problems No known active problems Surgical History Surgery Date Site/Laterality Comments SECTION PROCEDURE: [place] DELIVERY ONLY; COMMENT: x 2 Family History [...] Procedure Name Priority Date/Time Associated Diagnosis Comments [facility] DEXA AXIAL SKELETON Routine 03/10/2023 4:56 PM EDT Age-related osteoporosis without current pathological fracture from Last 3 Months or Most Recently Relevant to Health Maintenance Results * [facility] DEXA AXIAL SKELETON (03/10/2023 4:56 PM EDT) Anatomical Region Laterality Modality Mammography 03/10/2023 11:2 1 AM EDT Narrative 03/10/2023 4:56 PM EDT [facility] Diagnostic Imaging Department [address] [place] [address] Patient: JAE CLAYTON /Age/Sex: 1945 - 78 - F Unit#: [id number] Location/Status: SPDIMAM/REG CLI Mnemonic/Ordering Site: MAMDEXAAX/SPMAM Ordering Physician: GRACIELA NUNEZ MD [facility] Dexa Axial Skeleton - 03/10/23 - 1145 History: Low estrogen state due to menopause. Parent hip fracture. Adult fracture (forearm). Comparison: 09/01/20 Findings: Bone densitometry is performed utilizing dual energy x-ray absorptiometry (DXA) in the [employer] unit. The lumbar spine and proximal femora [...] 39.8 percent Hip 26.4 percent. IMPRESSION: Osteoporosis. [id number] Dictating Physician: SHIRA MADRIGAL MD Electronically Signed by: SHIRA MADRIGAL MD Dic Date/Time: 03/10/231654 Sign date/Time: 03/10/231655 Procedure Note Shira Madrigal MD - 12/09/2023 [facility] Diagnostic Imaging Department [address] [place], [place] [id number] Patient: JAE CLAYTON /Age/Sex: 1945 78 - F Unit#: [id number] Location/Status: SPDIMAM/REG CLI Mnemonic/Ordering Site: MAMDEXAAX/SPMAM Ordering Physician: GRACIELA NUNEZ MD [facility] Dexa Axial Skeleton - 03/10/23 - 1145 History: Low estrogen state due to menopause. Parent hip fracture. Adult fracture (forearm). Comparison: 09/01/20 Findings: Bone densitometry is performed utilizing dual energy x-ray absorptiometry(DXA) in the [employer] unit. The lumbar spine and proximal femora [...] 39.8 percent Hip 26.4 percent. IMPRESSION: Osteoporosis. [id number] Dictating Physician: SHIRA MADRIGAL MD Electronically Signed by: SHIRA MADRIGAL MD Dic Date/Time: 03/10/231654 Sign date/Time: 03/10/231655 us Graciela Pineda MD IMG BI PROCEDURES Final Resu lt from Last 3 Months or Most Recently Relevant to Health Maintenance Insurance [employer] Care Teams Lay Ups Assembler Relationship Specialty Start Date End Date Reina Gil MD [address] [place] [address] [phone] PCP - General Internal Medicine 10/23/24
== END 2025-06-25 15:18 | disposition home or self-care (01) ==
LOC: HO.XRAY 15:17
PROVIDERS: PCP Internal Medicine; Visit Provider Internal Medicine Rheumatology
DX: M17.9 Osteoarthritis of knee, unspecified (principal); M35.01 Sjogren syndrome with keratoconjunctivitis; R76.8 Other specified abnormal immunological findings in serum; M35.05 Sjogren syndrome with inflammatory arthritis; M19.041 Primary osteoarthritis, right hand; M19.042 Primary osteoarthritis, left hand
CPT/HCPCS: 73130; 73562; 73630

== ENCOUNTER → 2025-06-25 15:25 | Outpatient (BNV) | payer MEDICARE, SELFPAY | PROVIDERS: PCP Internal Medicine; Visit Provider Radiology Diagnostic Radiology | DX: M17.0 Bilateral primary osteoarthritis of knee (principal); M19.049 Primary osteoarthritis, unspecified hand; M19.079 Primary osteoarthritis, unspecified ankle and foot | CPT/HCPCS: 73130; 73562; 73630 ==

== ENCOUNTER 2025-07-18 14:13 | Outpatient (AMB) | payer OTHER, SELFPAY ==
--- OUTSIDE RECORDS SUMMARY | 2024-08-29 06:30 | XMS_ITS ---
Author Organization [facility] Address [address] [place] [address] Care Team Providers Care Machine Coremaker Name Role Phone Reina Gil Primary Care Provider Kori Franco [phone] Encounters Encounter Location Date Provider Diagnosis [address] [address] 08/29/2024 Kori Lozano Plan Of Treatment No Information Progress Notes * Nakita CLAYTONDOB:[birth year] (80 yo F)Acc No.[id number]:08/29/2024 Progress Notes Patient: Nakita FERMIN Provider: Gerson Lozano DPM :1945 A ge:79 Y S ex:Female Date:08/29/2024 Address:[address] [place], [place] [id number] Pcp:Reina Gil Subjective: * Chief Complaints: * [...] 1 Generated for Darwin mesa/Maude/Kishoritting on: 0 07/18/2025 05:59 PM EDT
[2025-07-18 14:22] VITALS: BP 150/80; PULSE 108; O2SAT 98; BMI 22.1
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
--- OUTSIDE RECORDS SUMMARY | 2025-07-18 18:00 | XMS_ITS | Patient Health Record ---
Author Organization [facility] Address [address] [place] [address] Care Team Providers Care Crate Maker Name Role Phone Reina Gil Primary Care Provider Kori Franco [phone] Reason For Referral No Information Encounters Encounter Location Date Provider Diagnosis [facility] [place] [address] 08/13/2024 Kori Lozano Plan Of Treatment No Information Insurance Providers Payer Name Payer Address Payer Phone Subscriber Number Group Number Insured Name Patient Relationship to Insured Coverage Start Date Coverage End Date [employer] [address] [place] [address] [phone] [id number] Nakita Fan Self - patient is the insured
== END 2025-07-18 14:55 | disposition home or self-care (01) ==
LOC: HO.RHES 14:14
PROVIDERS: PCP Internal Medicine; Visit Provider Internal Medicine Rheumatology
DX: M35.05 Sjogren syndrome with inflammatory arthritis (principal); M17.0 Bilateral primary osteoarthritis of knee; M70.61 Trochanteric bursitis, right hip; I73.00 Raynaud's syndrome without gangrene
CPT/HCPCS: 20610; 99213

== ENCOUNTER → 2025-07-18 14:13 | Outpatient (BNVA) | payer OTHER, SELFPAY | PROVIDERS: PCP Internal Medicine; Visit Provider Internal Medicine Rheumatology | DX: M17.0 Bilateral primary osteoarthritis of knee (principal) | CPT/HCPCS: 20610; J2003; J3301 ==

== ENCOUNTER 2025-08-01 14:43 | Outpatient (REF) | payer OTHER, SELFPAY ==
--- OUTSIDE RECORDS SUMMARY | 2024-08-29 06:30 | XMS_ITS ---
Author Organization [facility] Address [address] [place] [id number] Care Team Providers Care Event Coordinator Name Role Phone Reina Gil Primary Care Provider Kori Franco [phone] Encounters Encounter Location Date Provider Diagnosis [address] [address] 08/29/2024 Kori Lozano Plan Of Treatment No Information Progress Notes * Nakita CLAYTONDOB:[birth year] (80 yo F)Acc No.[id number]:08/29/2024 Progress Notes Patient: Nakita FERMIN Provider: Gerson Lozano DPM :1945 A ge:79 Y S ex:Female Date:08/29/2024 Address:[address] [place], [place] [id number] Pcp:Reina Gil Subjective: * Chief Complaints: * * Medical History: Objective: * Vitals: Assessment: Plan: * Treatment: * Images: * The named appointment provid er may or may not be the originator of this progress note, and it is not deemed complete until electronically signed by the appointment provider. Sign off status: Pending * Provider: Gerson Lozano DPM Date: 1 Generated for Darwin mesa/Maude/Kishoritting on: 0 08/01/2025 07:01 PM EDT
[2025-08-01 17:56] LABS: MANUAL DIFF FLAG NO
[2025-08-01 18:08] LABS: Hematocrit 40.1 % (37.0-47.0); Hemoglobin 13.3 g/dl (12.0-16.0); Imm Gran Abs Auto 0.04 X10*3/uL (0.00-0.03); Imm Gran Pct Auto 0.3 % (0.0-0.4); Lymphocytes Absolute Auto 2.2 X10*3/uL (1.2-4.9); Mean Corpuscular HGB Conc 33.2 g/dl (31.0-35.0); Mean Corpuscular Hemoglobin 29.9 pg (27.0-33.0); Mean Corpuscular Volume 90.1 fL (80.0-98.0); NRBC Abs Auto 0.000 X10*3/uL (0.0-0.012); NRBC Pct Auto 0.0 /100WBC (0.0-0.2); Platelet Count 302 X10*3/uL (160-400); Red Blood Count 4.45 X10*6/uL (4.20-5.50); White Blood Count 11.7 X10*3/uL (4.8-10.8)
[2025-08-01 18:12] LABS: Appearance Urine Clear; Glucose Urine UA Negative (Negative); PH 7.5 (5.0-9.0); Specific Gravity - Urine <= 1.005 (1.005-1.025); UMIC TRIGGER UACC YES
[2025-08-01 18:33] LABS: Alanine Aminotransferase 44 U/L (0-31); Aspartate Amino Transferase 28 U/L (5-31); Estimated Glomerular Filt Rate > 60
[2025-08-01 18:56] LABS: Total Protein Urine Random < 7 mg/dL (<12)
--- OUTSIDE RECORDS SUMMARY | 2025-08-01 19:02 | XMS_ITS | Patient Health Record ---
[facility] Address [address] [place] [address] Care Team Providers Care Residential Glazier Name Role Phone Reina Gil Primary Care Provider Kori Franco [phone] Reason For Referral No Information Encounters Encounter Location Date Provider Diagnosis [facility] [place] [address] 08/13/2024 Kori Lozano Plan Of Treatment No Information Insurance Providers Payer Name Payer Address Payer Phone Subscriber Number Group Number Insured Name Patient Relationship to Insured Coverage Start Date Coverage End Date [employer] [address] [place] [address] [id number] Nakita Fan Self - patient is the insured
[2025-08-02 08:17] LABS: HBS Num1 0.76 mIU/mL (0-7.99); HBc Num1 0.14 S/CO (0.00-0.79); HBsAGNum1 0.29 S/CO (0.00-0.99); Hepatitis B Surface Antigen Negative (Negative); ~HepC Num1 0.11 S/CO (0.00-0.79); ~Hepatitis B Surface Antibody NONREACTIVE (Nonreactive); ~Hepatitis C Antibody Nonreactive (Nonreactive)
[2025-08-04 20:39] LABS: TS Negative Control Passed; TS Panel A 4; TS Panel B 0; TS Positive Control Passed; TSpotTB Negative (Negative)
[2025-08-05 14:48] LABS: Antibody to SS-A Antigen >8.0 POS AI (<1.0 NEG); Antibody to SS-B Antigen <1.0 NEG AI (<1.0 NEG); SM/Ribonucleoprotein Ab <1.0 NEG AI (<1.0 NEG); Smith Protein <1.0 NEG AI (<1.0 NEG)
[2025-08-05 21:34] LABS: Glucose-6-Phosphate Dehydrogen 17.4 U/g Hgb (7.0-20.5)
[2025-08-05 22:42] LABS: Prot Elec - Albumin 3.8 g/dL (3.8-4.8); Prot Elec - Alpha1 0.3 g/dL (0.2-0.3); Prot Elec - Alpha2 1.0 g/dL (0.5-0.9); Prot Elec - Beta 1 0.4 g/dL (0.4-0.6); Prot Elec - Beta 2 0.3 g/dL (0.2-0.5); Prot Elec - Gamma 0.8 g/dL (0.8-1.7); Prot Elec - Total Protein 6.6 g/dL (6.1-8.1)
[2025-08-12 10:33] LABS: Anti Nuclear Antibody Screen POSITIVE (NEGATIVE); Anti Nuclear Antibody Titer 1:1280 titer
== END 2025-08-01 14:44 | disposition home or self-care (01) ==
LOC: HO.HKASLDS 14:43
PROVIDERS: Visit Provider Internal Medicine Rheumatology
DX: Z01.84 Encounter for antibody response examination (principal); Z11.1 Encounter for screening for respiratory tuberculosis; M35.01 Sjogren syndrome with keratoconjunctivitis; M35.05 Sjogren syndrome with inflammatory arthritis; R76.8 Other specified abnormal immunological findings in serum; R76.0 Raised antibody titer; Z79.899 Other long term (current) drug therapy
CPT/HCPCS: 36415; 81001; 82565; 82570; 82955; 84156; 84165; 84450; 84460; 85025; 85652; 86038; 86039; 86140; 86160; 86200; 86225; 86235; 86431; 86481; 86704; 86706; 86803; 87340